=== PATIENT | female | born 1980 | race Caucasian/White ===

== ENCOUNTER 2018-07-09 16:47 | Inpatient (IN) | payer OTHER ==
[2018-07-09] MEDS ORDERED: ONDANSETRON ODT 4 MG TAB PO STA (17:37)
[2018-07-09] MEDS ORDERED: ACETAMINOPHEN TAB 500 MG TAB PO STA (17:37)
[2018-07-09] MEDS ORDERED: KETOROLAC 30 MG/ML 1 ML VIAL IVP STA (17:37)
--- NOTE | 2018-07-09 17:39 | ED ---
General Adult HPI - General Chief complaint: Fever Stated complaint: Lower L Groin Pain Time Seen by Provider: 07/09/18 17:27 Source: patient, RN notes reviewed Mode of arrival: ambulatory Limitations: no limitations - History of Present Illness Initial comments: 37-year-old female without any significant past medical history presents to the emergency department for a chief complaint of left groin pain and fever. Patient states she has that she woke up in the middle of the night and felt febrile and had left groin pain. Patient states that she did have a fever up to 101 today. Last took Tylenol about 4 hours ago. Patient unsure of how much she took but took 1 tab. Patient states she also has pain in her left groin. States it is a sharp pain. States she has had similar pain before due to a fibroid but this is much worse. Denies hematuria but does admit to heavy vaginal bleeding that has been ongoing for a few days. Patient admits to nausea, denies vomiting. Denies diarrhea, hematochezia, melena. Patient has no other complaints at this time including shortness of breath, chest pain, abdominal pain, vomiting, headache, or visual changes. - Related Data Home Medications Medication Instructions Recorded Confirmed No Known Home Medications 07/09/18 07/09/18 Allergies Allergy/AdvReac Type Severity Reaction Status Date / Time No Known Allergies Allergy Verified 07/09/18 17:55 Review of Systems ROS Statement: Those systems with pertinent positive or pertinent negative responses have been documented in the HPI. ROS Other: All systems not noted in ROS Statement are negative. Past Medical History Past Medical History: No Reported History History of Any Multi-Drug Resistant Organisms: None Reported Past Surgical History: No Surgical Hx Reported Past Psychological History: No Psychological Hx Reported Smoking Status: Never smoker Past Alcohol Use History: None Reported Past Drug Use History: None Reported General Exam Limitations: no limitations General appearance: alert, in no apparent distress Head exam: Present: atraumatic, normocephalic, normal inspection Eye exam: Present: normal appearance, PERRL, EOMI. Absent: scleral icterus, conjunctival injection, periorbital swelling ENT exam: Present: normal exam, mucous membranes moist Neck exam: Present: normal inspection, full ROM. Absent: tenderness, meningismus, lymphadenopathy Respiratory exam: Present: normal lung sounds bilaterally. Absent: respiratory distress, wheezes, rales, rhonchi, stridor Cardiovascular Exam: Present: normal rhythm, tachycardia, normal heart sounds. Absent: systolic murmur, diastolic murmur, rubs, gallop, clicks GI/Abdominal exam: Present: soft, tenderness (Tenderness in LLQ, no rebound), normal bowel sounds. Absent: distended, guarding, rebound, rigid External exam: Present: normal external exam. Absent: erythema, swelling, le sions, lacerations, ecchymosis Speculum exam: Present: vaginal bleeding (mild vaginal bleeding noted). Absent: erythema, vaginal discharge, cervical discharge, foreign body By manual exam: Present: normal by manual exam. Absent: cervical motion ten derness, adnexal tenderness (minimal L adnexal tendernsss), adnexal mass, uterine enlargement Back exam: Present: CVA tenderness (L). Absent: CVA tenderness (R) Neurological exam: Present: alert, oriented X3, CN II-XII intact Psychiatric exam: Present: normal affect, normal mood Course Vital Signs 07/09/18 07/09/18 07/09/18 16:57 18:00 20:03 Temperature 99.5 F Pulse Rate 147 H 118 H 105 H Respiratory 16 18 18 Rate Blood Pressure 123/80 137/78 123/78 O2 Sat by Pulse 100 100 100 Oximetry 07/09/18 22:04 Temperature 98.3 F Pulse Rate 81 Respiratory 18 Rate Blood Pressure 100/68 O2 Sat by Pulse 100 Oximetry - Reevaluation(s) Reevaluation #1: 07/09/18 20:20 Dr Sidhu at bedside, evaluating patient, ordering CRP EKG Findings - EKG Comments: EKG Findings:: Sinus tachycardia, ventricular rate 128,. Interval 144, QTC 298, no evidence of ST elevation or depression, Medical Decision Making - Medical Decision Making 37-year-old female without any significant past medical history presents to the ED for a chief complaint of left groin pain and fever. States that this pain is actually been going on for for quite sometime, likely since June and has been due to a fibroid. However pain worsened significantly last night and patient developed a fever. States she has had vaginal bleeding but no vaginal discharge. On exam patient has left lower quadrant suprapubic tenderness. However on pelvic there is not any significant adnexal tenderness and tenderness seems to be higher up in the abdomen. Patient does present with a low-grade fever of 99.4. Initially tachycardic with a heart rate of 147, this was normal sinus rhythm. Heart rate did gradually decrease to 105 after Toradol and Tylenol was given. CBC does show leukocytosis with a left shift of 24. CMP is unremarkable. Urine does not show any evidence of infection, there is blood noted however this is likely vaginal bleeding. Influenza negative. CT of the abdomen and pelvis was ordered with contrast that did not show any cause for left-sided pain or abdominal pain in general. The cecum was noted to be low in the pelvis. At this time ultrasound of the pelvis was ordered. Patient denies any vaginal discharge or concern physically transmitted diseases. Gonorrhea chlamydia and Trichomonas are pending. Dr. Pastrana evaluated patient, recommends adding CRP and admitting with a surgical consult. Patient will be admitted at this time. Patient is currently stable. Ultrasound does show a mass in the lower uterine segment of uncertain significance. This has increased vascularity compared to remainder of the uterus. This could be a uterine fibroid. Patient does have a history of uterine fibroid. - Lab Data Result diagrams: 07/09/18 17:50 07/09/18 17:50 Lab Results 07/09/18 07/09/18 07/09/18 Range/Units 17:45 17:45 17:45 WBC (3.8-10.6) k/uL RBC (3.80-5.40) m/uL Hgb (11.4-16.0) gm/dL Hct (34.0-46.0) % MCV (80.0-100.0) fL MCH (25.0-35.0) pg MCHC (31.0-37.0) g/dL RDW (11.5-15.5) % Plt Count (150-450) k/uL Neutrophils % % Lymphocytes % % Monocytes % % Eosinophils % % Basophils % % Neutrophils # (1.3-7.7) k/uL Lymphocytes # (1.0-4.8) k/uL Monocytes # (0-1.0) k/uL Eosinophils # (0-0.7) k/uL Basophils # (0-0.2) k/uL PT (9.0-12.0) sec INR (<1.2) APTT (22.0-30.0) sec Sodium (137-145) mmol/L Potassium (3.5-5.1) mmol/L Chloride (98-107) mmol/L Carbon Dioxide (22-30) mmol/L Anion Gap mmol/L BUN (7-17) mg/dL Creatinine (0.52-1.04) mg/dL Est GFR (CKD-EPI)AfAm (>60 ml/min/1.73 sqM) Est GFR (CKD-EPI)NonAf (>60 ml/min/1.73 sqM) Glucose (74-99) mg/dL Plasma Lactic Acid Skinny (0.7-2.0) mmol/L Calcium (8.4-10.2) mg/dL Total Bilirubin (0.2-1.3) mg/dL AST (14-36) U/L ALT (9-52) U/L Alkaline Phosphatase (38-126) U/L C-Reactive Protein (<10.0) mg/L Total Protein (6.3-8.2) g/dL Albumin (3.5-5.0) g/dL Urine Color Yellow Urine Appearance Clear (Clear) Urine pH 5.0 (5.0-8.0) Ur Specific Gentry 1.018 (1.001-1.035) Urine Protein Negative (Negative) Urine Glucose (UA) Negative (Negative) Urine Ketones Negative (Negative) Urine Blood Small H (Negative) Urine Nitrite Negative (Negative) Urine Bilirubin Negative (Negative) Urine Urobilinogen <2.0 (<2.0) mg/dL Ur Leukocyte Esterase Negative (Negative) Urine RBC 8 H (0-5) /hpf Urine WBC 1 (0-5) /hpf Urine Mucus Rare H (None) /hpf Urine HCG, Qual Not Detected (Not Detectd) Influenza Type A RNA Not Detected (Not Detectd) Influenza Type B (PCR) Not Detected (Not Detectd) Trichomonas Ag (Rapid) (Negative) 07/09/18 07/09/18 07/09/18 Range/Units 17:50 17:50 17:50 WBC 24.9 H (3.8-10.6) k/uL RBC 4.75 (3.80-5.40) m/uL Hgb 14.3 (11.4-16.0) gm/dL Hct 42.1 (34.0-46.0) % MCV 88.7 (80.0-100.0) fL MCH 30.1 (25.0-35.0) pg MCHC 33.9 (31.0-37.0) g/dL RDW 12.4 (11.5-15.5) % Plt Count 326 (150-450) k/uL Neutrophils % 90 % Lymphocytes % 5 % Monocytes % 3 % Eosinophils % 1 % Basophils % 0 % Neutrophils # 22.5 H (1.3-7.7) k/uL Lymphocytes # 1.3 (1.0-4.8) k/uL Monocytes # 0.7 (0-1.0) k/uL Eosinophils # 0.3 (0-0.7) k/uL Basophils # 0.0 (0-0.2) k/uL PT (9.0-12.0) sec INR (<1.2) APTT (22.0-30.0) sec Sodium 137 (137-145) mmol/L Potassium 4.1 (3.5-5.1) mmol/L Chloride 102 (98-107) mmol/L Carbon Dioxide 25 (22-30) mmol/L Anion Gap 10 mmol/L BUN 12 (7-17) mg/dL Creatinine 0.69 (0.52-1.04) mg/dL Est GFR (CKD-EPI)AfAm >90 (>60 ml/min/1.73 sqM) Est GFR (CKD-EPI)NonAf >90 (>60 ml/min/1.73 sqM) Glucose 108 H (74-99) mg/dL Plasma Lactic Acid Skinny 1.6 (0.7-2.0) mmol/L Calcium 9.9 (8.4-10.2) mg/dL Total Bilirubin 0.4 (0.2-1.3) mg/dL AST 21 (14-36) U/L ALT 31 (9-52) U/L Alkaline Phosphatase 78 (38-126) U/L C-Reactive Protein (<10.0) mg/L Total Protein 7.6 (6.3-8.2) g/dL Albumin 4.7 (3.5-5.0) g/dL Urine Color Urine Appearance (Clear) Urine pH (5.0-8.0) Ur Specific Gentry (1.001-1.035) Urine Protein (Negative) Urine Glucose (UA) (Negative) Urine Ketones (Negative) Urine Blood (Negative) Urine Nitrite (Negative) Urine Bilirubin (Negative) Urine Urobilinogen (<2.0) mg/dL Ur Leukocyte Esterase (Negative) Urine RBC (0-5) /hpf Urine WBC (0-5) /hpf Urine Mucus (None) /hpf Urine HCG, Qual (Not Detectd) Influenza Type A RNA (Not Detectd) Influenza Type B (PCR) (Not Detectd) Trichomonas Ag (Rapid) (Negative) 07/09/18 07/09/18 07/09/18 Range/Units 17:50 17:50 19:55 WBC (3.8-10.6) k/uL RBC (3.80-5.40) m/uL Hgb (11.4-16.0) gm/dL Hct (34.0-46.0) % MCV (80.0-100.0) fL MCH (25.0-35.0) pg MCHC (31.0-37.0) g/dL RDW (11.5-15.5) % Plt Count (150-450) k/uL Neutrophils % % Lymphocytes % % Monocytes % % Eosinophils % % Basophils % % Neutrophils # (1.3-7.7) k/uL Lymphocytes # (1.0-4.8) k/uL Monocytes # (0-1.0) k/uL Eosinophils # (0-0.7) k/uL Basophils # (0-0.2) k/uL PT 9.7 (9.0-12.0) sec INR 0.9 (<1.2) APTT 25.0 (22.0-30.0) sec Sodium (137-145) mmol/L Potassium (3.5-5.1) mmol/L Chloride (98-107) mmol/L Carbon Dioxide (22-30) mmol/L Anion Gap mmol/L BUN (7-17) mg/dL Creatinine (0.52-1.04) mg/dL Est GFR (CKD-EPI)AfAm (>60 ml/min/1.73 sqM) Est GFR (CKD-EPI)NonAf (>60 ml/min/1.73 sqM) Glucose (74-99) mg/dL Plasma Lactic Acid Skinny (0.7-2.0) mmol/L Calcium (8.4-10.2) mg/dL Total Bilirubin (0.2-1.3) mg/dL AST (14-36) U/L ALT (9-52) U/L Alkaline Phosphatase (38-126) U/L C-Reactive Protein 9.8 (<10.0) mg/L Total Protein (6.3-8.2) g/dL Albumin (3.5-5.0) g/dL Urine Color Urine Appearance (Clear) Urine pH (5.0-8.0) Ur Specific Gentry (1.001-1.035) Urine Protein (Negative) Urine Glucose (UA) (Negative) Urine Ketones (Negative) Urine Blood (Negative) Urine Nitrite (Negative) Urine Bilirubin (Negative) Urine Urobilinogen (<2.0) mg/dL Ur Leukocyte Esterase (Negative) Urine RBC (0-5) /hpf Urine WBC (0-5) /hpf Urine Mucus (None) /hpf Urine HCG, Qual (Not Detectd) Influenza Type A RNA (Not Detectd) Influenza Type B (PCR) (Not Detectd) Trichomonas Ag (Rapid) Negative (Negative) Disposition Clinical Impression: Abdominal pain, Leukocytosis, Fever Disposition: ADMITTED IP TO THIS HOSP Condition: Fair Is patient prescribed a controlled substance at d/c from ED?: No Time of Disposition: 21:12
[2018-07-09] MEDS: SODIUM CHLORIDE 0.9% 500 ML 500 ML IV SCH (17:55)
[2018-07-09 18:00] LABS: Basophils % (A) 0 %; Eosinophils # (A) 0.3 k/uL (0-0.7); Eosinophils % (A) 1 %; HCT 42.1 % (34.0-46.0); HGB 14.3 gm/dL (11.4-16.0); Lymphocytes # (A) 1.3 k/uL (1.0-4.8); Lymphocytes % (A) 5 %; MCH 30.1 pg (25.0-35.0); MCHC 33.9 g/dL (31.0-37.0); MCV 88.7 fL (80.0-100.0); Monocytes # (A) 0.7 k/uL (0-1.0); Monocytes % (A) 3 %; Neutrophils # (A) 22.5 k/uL (1.3-7.7); Neutrophils % (A) 90 %; Platelet Count 326 k/uL (150-450); RBC 4.75 m/uL (3.80-5.40); RDW 12.4 % (11.5-15.5); WBC 24.9 k/uL (3.8-10.6)
[2018-07-09 18:03] LABS: Appearance,Urine Clear (Clear); Bilirubin,Urine Negative (Negative); Blood,Urine Small (Negative); Color,Urine Yellow; Glucose,Urine (UA) Negative (Negative); Ketones,Urine Negative (Negative); Leukocyte Esterase,Urine Negative (Negative); Mucus,Urine Rare /hpf; Nitrite,Urine Negative (Negative); Protein,Urine Negative (Negative); RBC,Urine 8 /hpf (0-5); Specific Gravity,Urine 1.018 (1.001-1.035); Urobilinogen,Urine <2.0 mg/dL (<2.0); WBC,Urine 1 /hpf (0-5)
[2018-07-09 18:11] LABS: INR 0.9 (<1.2); Prothrombin Time 9.7 sec (9.0-12.0)
[2018-07-09 18:12] LABS: ALT 31 U/L (9-52); AST 21 U/L (14-36); Albumin 4.7 g/dL (3.5-5.0); Alkaline Phosphatase 78 U/L (38-126); Anion Gap 10 mmol/L; Blood Urea Nitrogen 12 mg/dL (7-17); Calcium 9.9 mg/dL (8.4-10.2); Carbon Dioxide 25 mmol/L (22-30); Chloride 102 mmol/L (98-107); Glucose 108 mg/dL (74-99); Potassium 4.1 mmol/L (3.5-5.1); Sodium 137 mmol/L (137-145); Total Bilirubin 0.4 mg/dL (0.2-1.3); Total Protein 7.6 g/dL (6.3-8.2)
[2018-07-09] MEDS ORDERED: SODIUM CHLORIDE 0.9% 1,000 ML IV STA (18:26)
--- NOTE | 2018-07-09 18:51 | CT ---
EXAMINATION TYPE: CT abdomen pelvis w con DATE OF EXAM: 07/09/2018 COMPARISON: None HISTORY: Left side pelvic pain. CT DLP: 864.4 mGycm Automated exposure control for dose reduction was used. TECHNIQUE: Helical acquisition of images was performed from the lung bases through the pelvis. CONTRAST: Performed without Oral Contrast and with IV Contrast, patient injected with 100ml mL of Isovue 300. FINDINGS: Lung bases are clear of consolidation. There is some coarsening of interstitial markings. Heart size is normal. There is no pericardial effusion. There is no pleural effusion. Liver spleen pancreas gallbladder appear normal. Bile ducts are not dilated. Stomach appears normal. There is no evidence of pancreatic mass. There is no adrenal mass. Kidneys show satisfactory contrast opacification. There is no hydronephrosi s. Ureters are not dilated. There is no retroperitoneal adenopathy. Bladder distends smoothly. There is no inguinal hernia. There is no free fluid in the pelvis. Uterus is anteverted and tilted to the l eft side. There is no mesenteric edema. There is no evidence of free air. There is no ascites. There is no sign of a bowel obstruction. The c ecum is very low in the pelvis. Appendix is not definitely seen. There is no sign of appendicitis. I see no bony destructive process. Lumbar spine is intact. Bony pelvis is intact. IMPRESSION: NEGATIVE CT SCAN OF THE ABDOMEN AND PELVIS. I DO NOT SEE A CAUSE FOR LEFT-SIDED PAIN.
[2018-07-09] MEDS ORDERED: metroNIDAZOLE-NS PMX 500 MG in SALINE 1 100ML.BAG IVPB STA (19:45)
--- NOTE | 2018-07-09 20:27 | P.GSCN ---
History of Present Illness Consult date: 07/09/18 History of present illness: Patient seen and evaluated. Pain ongoing of the right lower pelvis over 1 month, since June. She presents with fevers and WBC of 20k+. CT of the abdomen reviewed with inflammation of the terminal ileum. No free air. Agree with transvaginal ultrasound. Additional studies pending. Recommend c-reactive protein for evaluation of Crohn's that may present with similar findings. No acute surgical intervention at this time. Past Medical History Past Medical History: No Reported History History of Any Multi-Drug Resistant Organisms: None Reported Past Surgical History: No Surgical Hx Reported Past Psychological History: No Psychological Hx Reported Smoking Status: Never smoker Past Alcohol Use History: None Reported Past Drug Use History: None Reported Medications and Allergies Home Medications Medication Instructions Recorded Confirmed Type No Known Home Medications 07/09/18 07/09/18 History Allergies Allergy/AdvReac Type Severity Reaction Status Date / Time No Known Allergies Allergy Verified 07/09/18 17:55 Surgical - Exam Vital Signs Temp Pulse Resp BP Pulse Ox 99.5 F 147 H 16 123/80 100 07/09/18 16:57 07/09/18 16:57 07/09/18 16:57 07/09/18 16:57 07/09/18 16:57 Results - Labs 07/09/18 17:50 07/09/18 17:50 Abnormal Lab Results - Last 24 Hours (Table) 07/09/18 07/09/18 07/09/18 Range/Units 17:45 17:50 17:50 WBC 24.9 H (3.8-10.6) k/uL Neutrophils # 22.5 H (1.3-7.7) k/uL Glucose 108 H (74-99) mg/dL Urine Blood Small H (Negative) Urine RBC 8 H (0-5) /hpf Urine Mucus Rare H (None) /hpf Diabetes panel 07/09/18 Range/Units 17:50 Sodium 137 (137-145) mmol/L Potassium 4.1 (3.5-5.1) mmol/L Chloride 102 (98-107) mmol/L Carbon Dioxide 25 (22-30) mmol/L BUN 12 (7-17) mg/dL Creatinine 0.69 (0.52-1.04) mg/dL Glucose 108 H (74-99) mg/dL Calcium 9.9 (8.4-10.2) mg/dL AST 21 (14-36) U/L ALT 31 (9-52) U/L Alkaline Phosphatase 78 (38-126) U/L Total Protein 7.6 (6.3-8.2) g/dL Albumin 4.7 (3.5-5.0) g/dL Calcium panel 07/09/18 Range/Units 17:50 Calcium 9.9 (8.4-10.2) mg/dL Albumin 4.7 (3.5-5.0) g/dL Pituitary panel 07/09/18 Range/Units 17:50 Sodium 137 (137-145) mmol/L Potassium 4.1 (3.5-5.1) mmol/L Chloride 102 (98-107) mmol/L Carbon Dioxide 25 (22-30) mmol/L BUN 12 (7-17) mg/dL Creatinine 0.69 (0.52-1.04) mg/dL Glucose 108 H (74-99) mg/dL Calcium 9.9 (8.4-10.2) mg/dL Adrenal panel 07/09/18 Range/Units 17:50 Sodium 137 (137-145) mmol/L Potassium 4.1 (3.5-5.1) mmol/L Chloride 102 (98-107) mmol/L Carbon Dioxide 25 (22-30) mmol/L BUN 12 (7-17) mg/dL Creatinine 0.69 (0.52-1.04) mg/dL Glucose 108 H (74-99) mg/dL Calcium 9.9 (8.4-10.2) mg/dL Total Bilirubin 0.4 (0.2-1.3) mg/dL AST 21 (14-36) U/L ALT 31 (9-52) U/L Alkaline Phosphatase 78 (38-126) U/L Total Protein 7.6 (6.3-8.2) g/dL Albumin 4.7 (3.5-5.0) g/dL
[2018-07-09] MEDS ORDERED: MORPHINE SULFATE 4 MG/ML SYRINGE IVP STA (20:57)
[2018-07-09] MEDS ORDERED: MORPHINE SULFATE 4 MG/ML SYRINGE IV PRN (21:08)
[2018-07-09] MEDS ORDERED: NALOXONE 0.4 MG/ML 1 ML VIAL IV PRN (21:08)
[2018-07-09] MEDS ORDERED: ONDANSETRON 4 MG/2 ML VIAL IVP PRN (21:08)
--- NOTE | 2018-07-09 21:46 | US ---
EXAMINATION TYPE: US transvaginal DATE OF EXAM: 07/09/2018 COMPARISON: NONE CLINICAL HISTORY: Pain, fever. Pain TECHNIQUE: Transvaginal (TV Date of LMP: 07/08/2018 EXAM MEASUREMENTS: Uterus: 7.6 x 3.5 x 4.5 cm Endometrial Stripe: 0.8 cm Right Ovary: 2.4 x 2.0 x 2.0 cm Left Ovary: 2.8 x 1.9 x 2.1 cm 1. Uterus: Anteverted 2. Endometrium: wnl 3. Right Ovary: wnl 4. Left Ovary: wnl Spectral, color and waveform doppler imaging shows good arterial and venous flow within the ovaries ; there is no evidence for ovarian torsion. 5. Bilateral Adnexa: wnl 6. Posterior cul-de-sac: wnl Hypoechoic area in EMA with color flow seen measuring 2.6 x 2.4 x 2.6cm. IMPRESSION: There is mass in the lower uterine segment of uncertain significance. This has increased vascularity compared to the remainder of the uterus. This could be uterine fibroid. No adnexal mass. Normal endometrium.
[2018-07-09] MEDS: SODIUM CHLORIDE 0.9% 1,000 ML IV SCH (22:09)
[2018-07-09 22:34] VITALS: BMI 27.3
[2018-07-10] MEDS: SODIUM CHLORIDE 0.9% 1,000 ML IV SCH ×3 (06:17→21:19)
[2018-07-10] MEDS: ACETAMINOPHEN TAB 325 MG TAB PO PRN ×2 (10:09→23:42)
[2018-07-10] MEDS ORDERED: KETOROLAC 30 MG/ML 1 ML VIAL IVP PRN (10:34)
--- NOTE | 2018-07-10 11:40 | P.HPIM ---
History of Present Illness Patient is a pleasant 37-year-old female came in with compensative from suprapubic pain and severe 8-9/10 sharp in nature nonradiating patient was also complaining of menorrhagia denied any metrorrhagia. Patient had diarrhea nausea vomiting. Patient denied dysuria. Urine UA essentially within normal murmurs there is no evidence of pneumonia patient does have leukocytosis with a white blood cell count going up to 20,000 no objective fevers but patient had some subjective chills at home. Patient had a CAT scan of the abdomen which did show some inflammation of the terminal ileum has Gen. surgery because of which C- reactive protein is being obtained. Ultrasound that did show a vascular lesion in the uterus possibility of her fibroid because of which are consulting every morning services. Which may be contributing to her pain. Patient's pain radiated to the left flank area Review of Systems REVIEW OF SYSTEMS: CONSTITUTIONAL: No fever, no malaise, no fatigue. HEENT: No recent visual problems or hearing problems. Denied any sore throat. CARDIOVASCULAR: No chest pain, orthopnea, PND, no palpitations, no syncope. PULMONARY: No shortness of breath, no cough, no hemoptysis. GASTROINTESTINAL: No diarrhea, no nausea, no vomiting. NEUROLOGICAL: No headaches, no weakness, no numbness. HEMATOLOGICAL: Denies any bleeding or petechiae. GENITOURINARY: As mentioned in HPI MUSCULOSKELETAL/RHEUMATOLOGICAL: Denies any joint pain, swelling, or any muscle pain. ENDOCRINE: Denies any polyuria or polydipsia. The rest of the 14-point review of systems is negative. Past Medical History Past Medical History: No Reported History History of Any Multi-Drug Resistant Organisms: None Reported Past Surgical History: No Surgical Hx Reported Past Psychological History: No Psychological Hx Reported Smoking Status: Never smoker Past Alcohol Use History: None Reported Past Drug Use History: None Reported Medications and Allergies Home Medications Medication Instructions Recorded Confirmed Type No Known Home Medications 07/09/18 07/09/18 History Allergies Allergy/AdvReac Type Severity Reaction Status Date / Time No Known Allergies Allergy Verified 07/09/18 17:55 Physical Exam Vitals: Vital Signs Temp Pulse Pulse Resp BP BP Pulse Ox 07/10/18 07:05 98.5 F 72 15 98/59 98 07/10/18 02:56 74 95/60 07/10/18 02:10 84/60 07/10/18 01:33 98.0 F 64 16 83/53 97 07/09/18 22:50 98.3 F 79 17 96/64 96 07/09/18 22:04 98.3 F 81 18 100/68 100 07/09/18 20:03 105 H 18 123/78 100 07/09/18 18:00 118 H 18 137/78 100 07/09/18 16:57 99.5 F 147 H 16 123/80 100 Intake and Output 07/09/18 07/10/18 07/10/18 22:59 06:59 14:59 Intake Total 960 Balance 960 Intake: Intake, IV Titration 960 Amount Sodium Chloride 0.9% 1, 960 000 ml @ 120 mls/hr IV . Q8H20M [facility] Rx#:[id number] Other: Voiding Method Toilet Weight 83.915 kg PHYSICAL EXAMINATION: GENERAL: The patient is alert and oriented x3, not in any acute distress. Well developed, well nourished. HEENT: Pupils are round and equally reacting to light. EOMI. No scleral icterus. No conjunctival pallor. Normocephalic, atraumatic. No pharyngeal erythema. No thyromegaly. CARDIOVASCULAR: S1 and S2 present. No murmurs, rubs, or gallops. PULMONARY: Chest is clear to auscultation, no wheezing or crackles. ABDOMEN: Soft, mild to moderate suprapubic tenderness, nondistended, normoactive bowel sounds. No palpable organomegaly. MUSCULOSKELETAL: No joint swelling or deformity. EXTREMITIES: No cyanosis, clubbing, or pedal edema. NEUROLOGICAL: Gross neurological examination did not reveal any focal deficits. SKIN: No rashes. Results CBC & Chem 7: 07/09/18 17:50 07/09/18 17:50 Labs: Abnormal Lab Results - Last 24 Hours (Table) 07/09/18 07/09/18 07/09/18 Range/Units 17:45 17:50 17:50 WBC 24.9 H (3.8-10.6) k/uL Neutrophils # 22.5 H (1.3-7.7) k/uL Glucose 108 H (74-99) mg/dL Urine Blood Small H (Negative) Urine RBC 8 H (0-5) /hpf Urine Mucus Rare H (None) /hpf Microbiology - Last 24 Hours (Table) 07/09/18 17:45 Urine Culture - Preliminary Urine,Clean Catch Thrombosis Risk Factor Assmnt - Choose All That Apply Each Factor Represents 1 point: Obesity (BMI >25) Thrombosis Risk Factor Assessment Total Risk Factor Score: 1 Thrombosis Risk Factor Assessment Level: Low Risk Assessment and Plan Plan: -Abdominal pain: Can be related to her uterine fibroid, UA and services was consulted patient does have menorrhagia which can happen with submucosal fibroid. We'll use nonsteroidal Antivert history for pain rather than morphine. -Leukocytosis there is no evidence of infection at this time we'll obtain a pro- calcitonin level probably reactive and repeat compresses metabolic profile tomorrow. -Rule out Crohn's because of some possible inflammation of the terminal ileum, obtaining C-reactive protein -DVT prophylaxis: Early ambulation
--- NOTE | 2018-07-10 12:04 | P.PN ---
Subjective Progress Note Date: 07/10/18 CHIEF COMPLAINT: Pelvic pain HISTORY OF PRESENT ILLNESS: Patient seen and examined the bedside. Patient continues to complain of pelvic pain but states it is a litter better than yesterday. She reports she has had this pelvic pain since June. Her PCP recommended she see an OBGYN. She reports she had an appointment for evaluation with an OB at the end of July. Denies nausea or vomiting. CRP within normal limits. No repeat lab work obtained this morning. Transvaginal ultrasound completed yesterday reveals mass in the lower uterine segment of uncertain significance with increased vascularity compared to remainder of uterus. Possible uterine fibroid. PHYSICAL EXAM: VITAL SIGNS: Reviewed. GENERAL: Well-developed in no acute distress. HEENT: No sclera icterus. Extraocular movements grossly intact. Moist buccal mucosa. Head is atraumatic, normocephalic. ABDOMEN: Soft. Nondistended. Suprapubic tenderess. NEUROLOGIC: Alert and oriented. Cranial nerves II through XII grossly intact. ASSESSMENT: 1. Pelvic pain x 1 month 2. Uterine mass, possible fibroid PLAN: NPO except for meds, ice chips, water Recommend OBGYN consult Nurse practitioner note has been reviewed by physician. Signing provider agrees with the documented findings, assessment, and plan of care. Objective - Vital Signs Vital signs: Vital Signs Temp 98.5 F 07/10/18 07:05 Pulse 72 07/10/18 07:05 Resp 15 07/10/18 07:05 BP 98/59 07/10/18 07:05 Pulse Ox 98 07/10/18 07:05 Intake & Output 07/09/18 07/10/18 07/10/18 18:59 06:59 18:59 Intake Total 960 Balance 960 Weight 83.915 kg Intake: Intake, IV Titration 960 Amount Sodium Chloride 0.9% 1, 960 000 ml @ 120 mls/hr IV . Q8H20M [facility] Rx#:[id number] Other: Voiding Method Toilet - Labs CBC & Chem 7: 07/09/18 17:50 07/09/18 17:50 Labs: Abnormal Lab Results - Last 24 Hours (Table) 07/09/18 07/09/18 07/09/18 Range/Units 17:45 17:50 17:50 WBC 24.9 H (3.8-10.6) k/uL Neutrophils # 22.5 H (1.3-7.7) k/uL Glucose 108 H (74-99) mg/dL Urine Blood Small H (Negative) Urine RBC 8 H (0-5) /hpf Urine Mucus Rare H (None) /hpf Microbiology - Last 24 Hours (Table) 07/09/18 17:45 Urine Culture - Preliminary Urine,Clean Catch Assessment and Plan (1) Pelvic pain Current Visit: Yes Status: Acute Code(s): R10.2 - PELVIC AND PERINEAL PAIN SNOMED Code(s): 87322677 (2) Uterine mass Current Visit: Yes Status: Acute Code(s): N85.9 - NONINFLAMMATORY DISORDER OF UTERUS, UNSPECIFIED SNOMED Code(s): 525314776143502 (3) Abdominal pain Current Visit: Yes Status: Acute Code(s): R10.9 - UNSPECIFIED ABDOMINAL PAIN SNOMED Code(s): 78412077 (4) Leukocytosis Current Visit: Yes Status: Acute Code(s): D72.829 - ELEVATED WHITE BLOOD CELL COUNT, UNSPECIFIED SNOMED Code(s): 945857612
[2018-07-10] MEDS: KETOROLAC 30 MG/ML 1 ML VIAL IVP PRN ×2 (12:07→20:40)
[2018-07-10 16:32] LABS: Basophils # (A) 0.1 k/uL (0-0.2); Basophils % (A) 0 %; Eosinophils # (A) 0.1 k/uL (0-0.7); Eosinophils % (A) 1 %; HCT 37.3 % (34.0-46.0); HGB 12.2 gm/dL (11.4-16.0); Lymphocytes # (A) 2.7 k/uL (1.0-4.8); Lymphocytes % (A) 18 %; MCH 29.6 pg (25.0-35.0); MCHC 32.8 g/dL (31.0-37.0); MCV 90.3 fL (80.0-100.0); Mean Platelet Volume 7.6; Monocytes # (A) 0.6 k/uL (0-1.0); Monocytes % (A) 4 %; Neutrophils % (A) 75 %; Platelet Count 247 k/uL (150-450); RBC 4.13 m/uL (3.80-5.40); WBC 14.6 k/uL (3.8-10.6)
--- NOTE | 2018-07-10 19:39 | P.PN ---
Progress Note - Text Progress Note Date: 07/10/18 Patient reevaluated this evening from this morning. She states the pain has not improved of the pelvis of moderate dull cramping. Studies consistent with questionable lesion in the pelvis. She reports pending to see a security strategist as outpatient. With computed tomography scan and transvaginal ultrasound demonstrating lesion within the pelvis, gynecological consultation is pending. Her symptoms has been present over 3+ weeks, we'll await gynecological recommendations. No acute surgical intervention at this time. All questions addressed and answered to the patient with her mother at bedside.
--- NOTE | 2018-07-10 20:07 | P.OBCN ---
History of Present Illness Consult date: 07/10/18 Reason for consult: pelvic pain Chief complaint: Pelvic/abdominal pain and fever History of present illness: This patient is a 37-year-old 0 para 0 femalewho presented to the emergency department yesterday with complaints of left groin pain and a fever at home. Patient states that she has had this similar abdominal pain for the last month or 2 and was seen by her primary care physician who ordered a pelvic u ltrasound. Pelvic ultrasound apparently at that time showed a uterine fibroid, small. Patient subsequently presented here with worsening pain and a fever at home was found to have an elevated white count to 24 and a low-grade temperature of 99 5. Patient's gynecologic history is such that she denies being in a relationship however she was sexually active approximately 3 weeks ago. She does not use anything for contraception. She has never had a . Patient denies a vaginal discharge. She is having regular menstrual cycles her last 2 been slightly heavy. She is currently on her menstrual cycle. Past medical history is unremarkable. Evaluation thus far shows a CAT scan which is normal and a pelvic cyst ultrasound which is normal with the exception of a incidental 2.6 cm fibroid. White blood cell count is now 14.6 and she is been afebrile. Patient did receive 2 antibiotics in the emergency department but has not been on any other antibiotics at this time. Patient is in the process of seeing a tin tie machine operator automatic as an outpatient at a different facility. Review of Systems Constitutional: Reports as per HPI Past Medical History Past Medical History: No Reported History History of Any Multi-Drug Resistant Organisms: None Reported Past Surgical History: No Surgical Hx Reported Past Psychological History: No Psychological Hx Reported Smoking Status: Never smoker Past Alcohol Use History: None Reported Past Drug Use History: None Reported Medications and Allergies Home Medications Medication Instructions Recorded Confirmed Type No Known Home Medications 07/09/18 07/09/18 History Allergies Allergy/AdvReac Type Severity Reaction Status Date / Time No Known Allergies Allergy Verified 07/09/18 17:55 Exam Vital Signs Temp Pulse Pulse Resp BP BP Pulse Ox 07/10/18 15:00 98.2 F 71 16 98/62 98 07/10/18 07:05 98.5 F 72 15 98/59 98 07/10/18 02:56 74 95/60 07/10/18 02:10 84/60 07/10/18 01:33 98.0 F 64 16 83/53 97 07/09/18 22:50 98.3 F 79 17 96/64 96 07/09/18 22:04 98.3 F 81 18 100/68 100 07/09/18 20:03 105 H 18 123/78 100 Intake and Output 07/10/18 07/10/18 07/10/18 06:59 14:59 22:59 Intake Total 960 840 Balance 960 840 Intake: Intake, IV Titration 960 840 Amount Sodium Chloride 0.9% 1, 960 840 000 ml @ 120 mls/hr IV . Q8H20M [facility] Rx#:[id number] Other: Voiding Method Toilet # Voids 2 - OBG Physical Exam Abdomen: Patient has some mild lower abdomen tenderness there is no rebound, or guarding. Abdomen: bowel sounds normal, no diffuse tenderness, no bruit present, no guarding noted, no hepatomegaly, no splenomegaly, no mass Results Result Diagrams: 07/10/18 15:59 07/09/18 17:50 Abnormal Lab Results - Last 24 Hours (Table) 07/10/18 07/10/18 Range/Units 12:03 15:59 WBC 14.6 H (3.8-10.6) k/uL Neutrophils # 11.0 H (1.3-7.7) k/uL Procalcitonin 0.22 H (0.02-0.09) ng/mL Microbiology - Last 24 Hours (Table) 07/09/18 17:45 Urine Culture - Preliminary Urine,Clean Catch Assessment and Plan Assessment: This patient is a 37-year-old 0 para 0 female with a 2 month history of lower abdominal and pelvic pain, mostly we recently worsening and with a fever and initial leukocytosis. Her leukocytosis appears to be resolving and she has been afebrile. Typically this does not fit the picture of a pelvic inflammatory disease or other pelvic infection. Her fibroid is very small and for the most part an incidental finding; certainly not the source of her pain or any infection. There is no evidence of any acute gynecologic processes and she does not fit the criteria for pelvic inflammatory disease. My recommendation was to be to continue to observe and do serial CBCs. If she did develop a fever or if her white blood cell count went back up consider putting her back on a ntibiotics. She may follow up with the tin tie machine operator automatic she plans to see as an outpatient. I did have a long discussion with her about fibroids and their natural history. Thank you very much for this consultation. (1) Pelvic pain Current Visit: Yes Status: Acute Code(s): R10.2 - PELVIC AND PERINEAL PAIN SNOMED Code(s): 66232230 (2) Uterine fibroid Current Visit: Yes Status: Acute Code(s): D25.9 - LEIOMYOMA OF UTERUS, UNSPECIFIED SNOMED Code(s): 65984021
[2018-07-11] MEDS: SODIUM CHLORIDE 0.9% 1,000 ML IV SCH ×3 (07:52→22:32)
[2018-07-11] MEDS: KETOROLAC 30 MG/ML 1 ML VIAL IVP PRN ×2 (07:52→19:27)
[2018-07-11 09:15] LABS: HCT 39.5 % (34.0-46.0); HGB 12.8 gm/dL (11.4-16.0); MCH 29.5 pg (25.0-35.0); MCHC 32.5 g/dL (31.0-37.0); MCV 90.6 fL (80.0-100.0); Mean Platelet Volume 7.4; Platelet Count 278 k/uL (150-450); RBC 4.36 m/uL (3.80-5.40); RDW 12.4 % (11.5-15.5); WBC 11.4 k/uL (3.8-10.6)
[2018-07-11 09:40] LABS: Anion Gap 10 mmol/L; Blood Urea Nitrogen 11 mg/dL (7-17); Calcium 8.8 mg/dL (8.4-10.2); Carbon Dioxide 23 mmol/L (22-30); Chloride 108 mmol/L (98-107); Glucose 58 mg/dL (74-99); Potassium 4.2 mmol/L (3.5-5.1); Sodium 141 mmol/L (137-145)
--- NOTE | 2018-07-11 11:32 | P.PN ---
Subjective 37-year-old admitted with the pelvic pain and suprapubic pain to surgery and PICKER MACHINE OPERATOR evaluated the patient and the TRIBUNAL MEMBER doesn't believe fibroid is committed to the pain. I had the discussion today with the general surgery the recommending IV antibiotics and possibility of appendicitis cannot be completely ruled out because of which patient will probably go for x-ray laparotomy tomorrow morning. Her white blood cell count has come down to 11,000. Constitutional: Denied any fatigue denied any fever. Cardio vascular: denied any chest pain, palpitations Gastrointestinal still has significant amount of pain without any improvement Pulmonary: Denied any shortness of breath cough Neurologic denied any new focal deficits All inpatient medications were reviewed and appropriate changes in these medications as dictated in the interval history and assessment and plan. Objective - Vital Signs Vital signs: Vital Signs Temp 98.3 F 07/11/18 07:00 Pulse 80 07/11/18 07:00 Resp 16 07/11/18 07:00 BP 104/69 07/11/18 07:00 Pulse Ox 98 07/11/18 07:00 Intake & Output 07/10/18 07/11/18 07/11/18 18:59 06:59 18:59 Intake Total 840 960 Balance 840 960 Intake: Intake, IV Titration 840 960 Amount Sodium Chloride 0.9% 1, 840 960 000 ml @ 120 mls/hr IV . Q8H20M [facility] Rx#:[id number] Other: Voiding Method Toilet Toilet # Voids 2 2 - Exam PHYSICAL EXAMINATION: GENERAL: The patient is alert and oriented x3, not in any acute distress. Well developed, well nourished. HEENT: Pupils are round and equally reacting to light. EOMI. No scleral icterus. No conjunctival pallor. Normocephalic, atraumatic. No pharyngeal erythema. No thyromegaly. CARDIOVASCULAR: S1 and S2 present. No murmurs, rubs, or gallops. PULMONARY: Chest is clear to auscultation, no wheezing or crackles. ABDOMEN: Soft, mild to moderate suprapubic tenderness, nondistended, normoactive bowel sounds. No palpable organomegaly. MUSCULOSKELETAL: No joint swelling or deformity. EXTREMITIES: No cyanosis, clubbing, or pedal edema. NEUROLOGICAL: Gross neurological examination did not reveal any focal deficits. SKIN: No rashes. - Labs CBC & Chem 7: 07/11/18 07:46 07/11/18 07:46 Labs: Abnormal Lab Results - Last 24 Hours (Table) 07/10/18 07/10/18 07/11/18 Range/Units 12:03 15:59 07:46 WBC 14.6 H 11.4 H (3.8-10.6) k/uL Neutrophils # 11.0 H (1.3-7.7) k/uL Chloride (98-107) mmol/L Glucose (74-99) mg/dL Procalcitonin 0.22 H (0.02-0.09) ng/mL 07/11/18 Range/Units 07:46 WBC (3.8-10.6) k/uL Neutrophils # (1.3-7.7) k/uL Chloride 108 H (98-107) mmol/L Glucose 58 L (74-99) mg/dL Procalcitonin (0.02-0.09) ng/mL Microbiology - Last 24 Hours (Table) 07/09/18 19:55 Blood Culture - Preliminary Blood No Growth after 24 hours 07/09/18 17:45 Urine Culture - Final Urine,Clean Catch Assessment and Plan Plan: -Abdominal pain: Etiology is not clear as mentioned above appendicitis cannot be completely ruled out because of which I'll started on antibiotics but would cell count is coming down and the patient the will undergo expiratory laparotomy tomorrow morning -Leukocytosis there is no evidence of infection at this time we'll obtain a pro- calcitonin level bit elevated as mentioned above appendicitis cannot be completely ruled out -Rule out Crohn's because of some possible inflammation of the terminal ileum, CRP levels are within normal limits -DVT prophylaxis: Early ambulation
--- NOTE | 2018-07-11 11:58 | P.PN ---
Subjective Progress Note Date: 07/11/18 CHIEF COMPLAINT: Abdominal pain with leukocytosis HISTORY OF PRESENT ILLNESS: The patient is a 37-year-old female who presented to the emergency room with sepsis, white count over 24,000 including or pelvic/right lower quadrant abdominal pain. Multiple diagnostic studies including pelvic ultrasound and CT scans were obtained. Patient still reports that pain is persistent. She had been seen by the paving foreman where gynecological workup has been dismissed. Her white blood cell count is still elevated. She has poor appetite. ROS: No reports of nausea and vomiting. No bowel movements. No fevers or chills. No new chest pain. No productive sputum PHYSICAL EXAM: VITAL SIGNS: Reviewed CONSTITUTIONAL: Well developed and in no acute distress. EYES: Conjuctivae without sclera icterus. Extraocular movements grossly intact. HEAD, EARS, NOSE, THROAT: Moist buccal mucosa. Head is atraumatic, normocephalic. Hears conversational speech. No nasal drainage. NECK: Supple. No thyroidomegaly. RESPIRATORY: Non-labored respirations and equal bilateral excursions. CARDIOVASCULAR: Palpable 2+ radial pulses. Regular rate. Regular rhythm. ABDOMEN: Tender above the pubis. No gross peritonitis MUSCULOSKELETAL: No gross deformity of the lower extremities noted. No clubbing. No cyanosis. SKIN: Good skin turgor. Well perfused. NEUROLOGIC: Cranial nerves I through XII grossly intact. No focal or lateralizing signs. PSYCH: Appropriate affect. Alert and oriented to person, place and time. CLINCAL LABS: White blood cell count initially 24,000 down to 11,000 ASSESSMENT: 1. Abdominal pain with leukocytosis PLAN: 1. I had spoken to her prior about possible diagnostic laparoscopy pending her clinical course and especially after evaluation by the paving foreman. 2. As her symptoms are still persistent, I spoke personally with the hospitalist who also agrees with proceeding with diagnostic laparoscopy possible appendectomy. 3. DVT prophylaxis 4. Will Board for case per request of admitting provider Objective - Vital Signs Vital signs: Vital Signs Temp 98.3 F 07/11/18 07:00 Pulse 80 07/11/18 07:00 Resp 16 07/11/18 07:00 BP 104/69 07/11/18 07:00 Pulse Ox 98 07/11/18 07:00 Intake & Output 05/09/19 05/10/19 05/10/19 18:59 06:59 18:59 Intake Total 840 960 Balance 840 960 Intake: Intake, IV Titration 840 960 Amount Sodium Chloride 0.9% 1, 840 960 000 ml @ 120 mls/hr IV . Q8H20M [facility] Rx#:[id number] Other: Voiding Method Toilet Toilet # Voids 2 2 - Labs CBC & Chem 7: 07/11/18 07:46 07/11/18 07:46 Labs: Abnormal Lab Results - Last 24 Hours (Table) 07/10/18 07/10/18 07/11/18 Range/Units 12:03 15:59 07:46 WBC 14.6 H 11.4 H (3.8-10.6) k/uL Neutrophils # 11.0 H (1.3-7.7) k/uL Chloride (98-107) mmol/L Glucose (74-99) mg/dL Procalcitonin 0.22 H (0.02-0.09) ng/mL 07/11/18 Range/Units 07:46 WBC (3.8-10.6) k/uL Neutrophils # (1.3-7.7) k/uL Chloride 108 H (98-107) mmol/L Glucose 58 L (74-99) mg/dL Procalcitonin (0.02-0.09) ng/mL Microbiology - Last 24 Hours (Table) 07/09/18 19:55 Blood Culture - Preliminary Blood No Growth after 24 hours 07/09/18 17:45 Urine Culture - Final Urine,Clean Catch
[2018-07-11] MEDS ORDERED: SCOPOLAMINE 1.5MG/72HR PATCH TRANSDERM ONE (13:27)
[2018-07-11] MEDS ORDERED: DEXAMETHASONE SOD PHOSPHATE 10 MG/ML 1 ML VIAL IV ONE (13:27)
[2018-07-11] MEDS ORDERED: ONDANSETRON 4 MG/2 ML VIAL IVP ONE (13:27)
[2018-07-11] MEDS ORDERED: HYDROmorphone 0.5 MG/0.5 ML SYRINGE IVP PRN (13:28)
[2018-07-11] MEDS ORDERED: METOCLOPRAMIDE 5 MG/ML 2 ML VIAL IVP PRN (13:28)
[2018-07-11] MEDS ORDERED: LACTATED RINGERS 1,000 ML IV SCH (13:30)
[2018-07-11] MEDS ORDERED: IV FLUID CONTINUATION 800 ML IV ONE (13:30)
[2018-07-11] MEDS ORDERED: HEPARIN SODIUM,PORCINE 5,000 UNIT/ML 1 ML VIAL SQ ONE (13:41)
[2018-07-11] MEDS ORDERED: LIDOCAINE 1% INJ 10MG/ML (20 ML MDV) ONE (14:05)
[2018-07-11] MEDS ORDERED: PROPOFOL 10 MG/ML 20 ML VIAL IV ONE (14:05)
[2018-07-11] MEDS ORDERED: KETOROLAC 30 MG/ML 1 ML VIAL ONE (14:05)
[2018-07-11] MEDS ORDERED: ROCURONIUM BROMIDE 10 MG/ML 10 ML VIAL IV ONE (14:05)
[2018-07-11] MEDS ORDERED: fentaNYL (PF) 50 MCG/ML 2 ML AMP ONE (14:05)
[2018-07-11] MEDS ORDERED: GLYCOPYRROLATE 0.2 MG/ML 2 ML VIAL ONE (14:05)
[2018-07-11] MEDS ORDERED: MIDAZOLAM 2 MG/2 ML VIAL ONE (14:05)
[2018-07-11] MEDS ORDERED: NEOSTIGMINE 1 MG/ML 10 ML VIAL ONE (14:05)
[2018-07-11] MEDS ORDERED: ceFAZolin 1,000 MG VIAL ONE (14:05)
[2018-07-11] MEDS ORDERED: SODIUM CHLORIDE 0.9% 100 ML with ceFAZolin 2 GM IV ONE ×2 (14:15)
[2018-07-11 14:24] LABS: N. gonorrhoeae,PCR Negative (Neg,Equiv); Neisseria Source Vagina
[2018-07-11 14:33] LABS: C. trachomatis,PCR Negative (Neg,Equiv); Chlamydia trachomatis Source Vagina
[2018-07-11] MEDS ORDERED: BUPIVACAINE-EPI 0.5%-1:200,000 10 ML VIAL SQ ONE (14:33)
[2018-07-11] MEDS ORDERED: LACTATED RINGERS 1,000 ML IV ONE (15:26)
--- NOTE | 2018-07-11 16:15 | P.OP ---
Date of Procedure: 07/11/18 Description of Procedure: Preoperative Diagnosis: 1. Leukocytosis 2. Right lower quadrant pain 3. Left lower quadrant pain 4. Peritonitis 5. Hypotension 6. Sepsis Postoperative Diagnosis: 1. Leukocytosis 2. Right lower quadrant pain 3. Left lower quadrant pain 4. Peritonitis 5. Hypotension 6. Sepsism 7. Endometriosis of the cul-de-sac 8. Uterine fibroid intra-uterine 9. Ovarian cysts, bilatreal Procedure(s) Performed: 1. Robotic-assisted daVinci Xi laparoscopic appendectomy 2. Evacuation of hemoperitoneum 3. Ablation of endometrial deposits pelvis, cul-de-sac Anesthesia: GONZALOA, local Surgeon: Lupe Sidhu Estimated Blood Loss (ml): 5 Pathology: none sent Condition: stable Disposition: floor Operative Findings: 1. Moderate hemoperitoneum over 250 mL evacuated from pelvis and cul-de-sac 2. Terminal ileum unremarkable 3. Cecum unremarkable 4. No bilateral inguinal hernias 5. Two endometrial deposits along cul-de-sac ablated 6. Physiologic bilateral ovarian cysts less than 8 mm 7. Likely source of hemoperitoneum from endometriosis INDICATIONS: The patient is a 37-year-old female who presents with bilateral lower abdominal pain initial right greater than left, leukocytosis, and hypotension. Despite additional studies and IV antibiotics, her abdominal pain was not improving. Benefits and risks, including infection, open surgery, and possibility for additional surgery was discussed at length. Informed consent was obtained. All questions of the patient and family were answered. DESCRIPTION: The patient was transferred to the operating room and placed in supine position. The patient had previously voided. The abdomen was then prepped and draped in standard sterile fashion as Ioban was placed along the abdomen to minimize any contamination of skin floor. After a timeout protocol was performed, attention was then brought to the left upper quadrant whereby a 0 degree 5 mm laparoscopic trocar entry was performed. The abdominal cavity was entered and insufflated to 15 mmHg pressure, which was tolerated well. Diagnostic laparoscopy demonstrated no injury to bowel, viscera or mesentery. Next a robotic 12-mm trocar was placed along the left lower quadrant, 15-cm lateral to the midline. A 8 mm port was placed along the right upper quadrant and another 8-mm port along the epigastrium. Ports were placed 10 cm apart from each other including 15-20 cm away from the target anatomy of the right pelvis. The patient was then placed in Trendelenburg position, at least 10 down and right side up at least 6. The robotic da Shelley XI system was primed and docked from the left side of the patient. Using atraumatic graspers and vessel sealer, the robotic system was docked and primed as described. Instruments were interchanged by the water quality assistant including graspers, robotic stapler and vessel sealer. Next, attention was brought to identify the cecum. A systematic view within the abdominal cavity was started with the small bowel which was unremarkable. The base of the cecum was unremarkable. The appendix was found deep into the pelvis with highly redundant sigmoid colon and cecum. No inguinal hernias were identified. Blood was found in the pelvis including th cul-de-sac. Suction international affairs vice president was used to evacuate the blood. Endometrial deposits were found in the cul-de-sac and ablated with vessel sealer. Additionally, fallopian tube was unremarkable with small physiologic cysts less than 8mm on both ovaries. The uterus was bulbous without exophytic mass along the serosa consistent with history of intra-uterine fibroid. The body to tip of the appendix was without dilation. No perforation was identified. A 45 mm white robotic staple loads were fired along the base of the appendix. The staple line was hemostatic. Hemostasis was checked prior to undocking the robot. The robot was undocked. I re-scrubbed into the case. The specimen was removed from the abdominal cavity with an Endo Catch bag through the 12 mm trocar at the left lower quadrant. All instruments and pneumoperitoneum were evacuated from the abdominal cavity. Local anesthetic was infiltrated to all wounds for postop analgesia. All incisions were also cleansed with diluted hydrogen peroxide. Exofin glue was applied to the rest of the skin incisions. The patient had tolerated the procedure well. The patient was extubated successfully. Postoperatively, her bilateral lower abdominal pain right greater than left had resolved.
[2018-07-11] MEDS: AMPICILLIN-SULBACTAM 3 GM in SODIUM CHLORIDE 0.9% 100 ML IVPB SCH ×2 (17:58→19:26)
--- NOTE | 2018-07-11 18:20 | P.PN ---
Progress Note - Text Progress Note Date: 07/11/18 Surgically she is doing well. Pelvic and abdominal pain completely resolved. Mother at bedside. She now has an appetite. Patient is clear for discharge from a surgical standpoint when medically stable. Discharge instructions reviewed with follow-up as outpatient in 2 weeks.
[2018-07-12] MEDS: AMPICILLIN-SULBACTAM 3 GM in SODIUM CHLORIDE 0.9% 100 ML IVPB SCH ×3 (00:38→12:37)
[2018-07-12 08:13] LABS: Anion Gap 11 mmol/L; Blood Urea Nitrogen 10 mg/dL (7-17); Calcium 9.1 mg/dL (8.4-10.2); Carbon Dioxide 19 mmol/L (22-30); Chloride 110 mmol/L (98-107); Glucose 79 mg/dL (74-99); Potassium 4.6 mmol/L (3.5-5.1); Sodium 140 mmol/L (137-145)
[2018-07-12] MEDS: SODIUM CHLORIDE 0.9% 1,000 ML IV SCH (09:20)
[2018-07-12 12:16] VITALS: BP 117/75; PULSE 69; RESP 18; TEMP 98.2
[2018-07-12] MEDS: KETOROLAC 30 MG/ML 1 ML VIAL IVP PRN (12:17)
--- NOTE | 2018-07-12 16:07 | P.DS ---
Providers Date of admission: 07/11/18 13:57 Attending physician: Marcel Leon Consults: 07/09/18 21:08 Consult Physician Stat Consulting Provider: Lupe Sidhu Consult Reason/Comments: abdominal pain, fever, leukocytosis Do you want consulting provider notified?: Already Contacted 07/10/18 14:20 Consult Physician Routine Consulting Provider: Gerber Urias Consult Reason/Comments: Pelvis pain with leukocytosis Do you want consulting provider notified?: Yes Primary care physician: Elle Priest Hospital Course: 37-year-old admitted with the pelvic pain and suprapubic pain to surgery and SURGICAL PROCESSOR evaluated the patient and the SQUILGEER doesn't believe fibroid is committed to the pain. I had the discussion today with the general surgery the recommending IV antibiotics and possibility of appendicitis cannot be completely ruled out because of which patient will probably go for x-ray laparotomy tomorrow morning. Her white blood cell count has come down to 11,000. 07/12/2018 Patient underwent x-ray laparotomy found to have hemoperitoneum and endometriosis of cul-de-sac. I'll discharge her in 3 days of antibiotics consider the severe leukocytosis at admission. Patient was asked to follow up with the SQUILGEER and general surgery as an outpatient. Patient pain resolved completely after evacuation of blood from pelvis. PHYSICAL EXAMINATION: GENERAL: The patient is alert and oriented x3, not in any acute distress. Well developed, well nourished. HEENT: Pupils are round and equally reacting to light. EOMI. No scleral icterus. No conjunctival pallor. Normocephalic, atraumatic. No pharyngeal erythema. No thyromegaly. CARDIOVASCULAR: S1 and S2 present. No murmurs, rubs, or gallops. PULMONARY: Chest is clear to auscultation, no wheezing or crackles. ABDOMEN: Soft, mild to moderate suprapubic tenderness, nondistended, normoactive bowel sounds. No palpable organomegaly. MUSCULOSKELETAL: No joint swelling or deformity. EXTREMITIES: No cyanosis, clubbing, or pedal edema. NEUROLOGICAL: Gross neurological examination did not reveal any focal deficits. SKIN: No rashes. Assessment and Plan Plan: -Abdominal pain: Secondary to hemoperitoneum, endometriosis of cul-de-sac. -Leukocytosis secondary to hemoperitoneum Patient Condition at Discharge: Fair Plan - Discharge Summary Discharge Rx Participant: No New Discharge Prescriptions: New Ibuprofen [Motrin] 600 mg PO Q8HR PRN #30 tab PRN Reason: Pain HYDROcodone/APAP 5-325MG [[place] 5-325] 1 tab PO Q6HR PRN 3 Days #10 tab PRN Reason: Pain Amoxic-Pot Clav 875-125Mg [Augmentin 875-125] 1 tab PO Q12HR #6 tablet Discharge Medication List HYDROcodone/APAP 5-325MG [[place] 5-325] 1 tab PO Q6HR PRN 3 Days #10 tab 07/11/18 [Rx] Ibuprofen [Motrin] 600 mg PO Q8HR PRN #30 tab 07/11/18 [Rx] Amoxic-Pot Clav 875-125Mg [Augmentin 875-125] 1 tab PO Q12HR #6 tablet 07/12/18 [Rx] Follow up Appointment(s)/Referral(s): Lupe Sidhu MD [STAFF PHYSICIAN] - 07/30/18 Elle Priest DO [Primary Care Provider] - 1-2 days Patient Instructions/Handouts: *Surgery [facility] - Laparoscopy Discharge Instructions, Endometriosis (DC) Activity/Diet/Wound Care/Special Instructions: May shower. No bathtub soaks. No lifting over 10 pounds one week. Regular diet as tolerated. fluids always encouraged. call your Dr with any fever, chills, increased pain not covered with pain meds, increased redness or discolored drainage from puncture sites or any concerns. no strenuous activity Last received toradol AT 1200. ([facility]) may have motrin next at 6pm May have [place] as needed at any time. no driving while taking narcotics. Discharge Disposition: HOME SELF-CARE
--- NOTE | 2018-07-16 08:20 | CDI ---
Documentation Clarification Form Date: 07/16/18 From: Moriah Nieves Phone: If questions call Mariola Cagle @ [phone], Hours-8:30 am & 5 pm M- F Admit Date: 07/11/2018 1:57:00 PM Patient Name: Mayelin Jacobs Visit Number: [id number] Discharge Date: 07/12/2018 4:40:00 PM ATTENTION: The Clinical Documentation Specialists (CDI) and [facility] Coding Staff appreciate your assistance in clarifying documentation. Please respond to the clarification below the line at the bottom and electronically sign. The CDI & [facility] Coding staff will review the response and follow-up if needed. Please note: Queries are made part of the Legal Health Record. If you have any questions, please contact the author of this message via ITS. Dr. Trina Boyce Conflicting documentation has been found in the medical record: Per 07/11 PN "The patient is a 37 year old female who presented to the ER with sepsis, WBC over 24,000 including pelvic/RLQ abdominal pain." Clinical Indicators: no fevers or chills, procalcitonin-0.22, CRP-9.8 Treatment: appy, evacuation of hemoperitoneum, ablation of endometrial deposits, antibiotics In your opinion, what is the most clinically appropriate diagnosis for this patient? Sepsis ruled in Sepsis ruled out Other explanation of clinical findings Unable to determine (no explanation for clinical findings) no sepsis MTDD
== END 2018-07-12 16:40 | disposition home or self-care (01) | DRG 746 ==
LOC: EC 16:47 → 4SSUR 21:12 → OBSVTOIN 07-11 13:57 → 6PED 07-11 23:28
PROVIDERS: ADMIT Hospitalist; ATTEND Hospitalist
PROC: 0U5F4ZZ Destruction of Cul-de-sac, Percutaneous Endoscopic Approach (ICD-10-PCS; 2018-07-11)
PROC: 0W9J4ZZ Drainage of Pelvic Cavity, Percutaneous Endoscopic Approach (ICD-10-PCS; 2018-07-11)
PROC: 8E0W4CZ Robotic Assisted Procedure of Trunk Region, Percutaneous Endoscopic Approach (ICD-10-PCS; 2018-07-11)
PROC: 0U9F4ZZ Drainage of Cul-de-sac, Percutaneous Endoscopic Approach (ICD-10-PCS; 2018-07-11)
PROC: 0DTJ4ZZ Resection of Appendix, Percutaneous Endoscopic Approach (ICD-10-PCS; principal; 2018-07-11 11:45)
DX: N80.3 Endometriosis of pelvic peritoneum (principal); K66.1 Hemoperitoneum; Q43.8 Other specified congenital malformations of intestine; D25.0 Submucous leiomyoma of uterus; N83.201 Unspecified ovarian cyst, right side; N83.202 Unspecified ovarian cyst, left side; N92.0 Excessive and frequent menstruation with regular cycle
CPT/HCPCS: 36415; 74177; 76830; 80048; 80053; 81001; 81025; 83605; 84145; 85025; 85027; 85610; 85730; 86140; 87040; 87086; 87491; 87502; 87591; 87808; 88304; 93005; 93975; 96361; 96365; 96367; 96375; 99285

== ENCOUNTER 2020-02-04 08:59 | Day surgery (SDC) | payer BC, OTHER ==
[2020-02-01 12:52] VITALS: BMI 27.6
[~2020-02-04 08:59] MED LIST: LACTATED RINGERS 1,000 ML IV SCH
[2020-02-04 09:20] VITALS: TEMP 98.6
[2020-02-04] MEDS ORDERED: PROPOFOL 10 MG/ML 20 ML VIAL IV ONE (10:39)
--- NOTE | 2020-02-04 11:13 | P.PCN ---
Date of Procedure: 02/04/20 Description of Procedure: BRIEF HISTORY: Patient is a 39-year-old female presenting for outpatient colonoscopy for evaluation of left lower quadrant pain. She reports frequent episodes of pain in the left lower quadrant of her abdomen. No signs or symptoms of GI bleeding. She has a remote history of colonoscopy. No family history of colon cancer. PROCEDURE PERFORMED: Colonoscopy with polypectomy. PREOPERATIVE DIAGNOSIS: Left lower quadrant abdominal pain, remote history of colonoscopy. ESTIMATED BLOOD LOSS: Minimal. IV sedation per Anesthesia. PROCEDURE: After informed consent was obtained, the patient, was brought into the endoscopy unit. IV sedation was administered by Anesthesia under continuous monitoring. Digital rectal examination was normal. Initially the Olympus CF-190 flexible video colonoscope was then inserted in the rectum, gradually advanced into the cecum without any difficulty. Careful examination was performed as the scope was gradually being withdrawn. Ileocecal valve and the appendiceal orifice were visualized and appeared normal. Prep was excellent. Mucosa of the cecum, ascending colon, transverse colon, descending colon, sigmoid colon, and rectum appeared normal. 3 diminutive polyps measuring 1-2 mm in size removed from the cecum, transverse colon and rectum with cold forcep polypectomy. Retroflexion was performed in the rectum and no lesions were seen. The patient tolerated the procedure well. IMPRESSION: Normal-appearing colon from rectum to cecum, with no pathology to explain patient's symptoms of left lower quadrant abdominal pain. 3 diminutive polyps removed with cold forcep polypectomy from the cecum, transverse colon and rectum. RECOMMENDATIONS: Findings of this examination were discussed with the patient.. Okay to resume diet. Okay to resume medications. On pathology from polypectomies. Recommend repeat colonoscopy in 7 years for colon polyps, pending pathology from polypectomy.
[2020-02-04 11:47] VITALS: BP 131/78; PULSE 78; RESP 16
== END 2020-02-04 12:00 | disposition home or self-care (01) ==
LOC: ORWHC2ENDO 08:59
PROVIDERS: ATTEND Internal Medicine
DX: D12.0 Benign neoplasm of cecum (principal); D12.3 Benign neoplasm of transverse colon; Z90.89 Acquired absence of other organs
CPT/HCPCS: 81025; 88305; 45380; J2704; 45385

== ENCOUNTER → 2020-03-30 | Outpatient (CLI) | payer BC ==
--- NOTE | 2020-03-30 22:08 | CT ---
EXAMINATION TYPE: CT abdomen pelvis wo con DATE OF EXAM: 03/30/2020 COMPARISON: 07/09/2018 INDICATION: c/o pelvic pain DLP: 847 mGycm, Automated exposure control for dose reduction was used. CONTRAST: 0 mL of Isovue 300. Study performed without Oral Contrast TECHNIQUE: Axial images were obtained from above the diaphragm to the pubic rami in the axial plane a t 5 mm thick sections. Reconstructed images are reviewed on the computer in the coronal plane. FINDINGS: Limited CT sections are obtained the lung bases. The lung bases are clear. CT ABDOMEN: Liver: Normal Spleen: Normal Pancreas: Normal Adrenal glands: The adrenal glands are normal. Gallbladder: Normal Kidneys: No masses are evident. No hydronephrosis is present. No cysts are present. No renal stone s are evident. Aorta: Normal Inferior vena cava: Normal. CT PELVIS: Loops of bowel within the abdomen and pelvis are normal. The study is without oral contrast limit ing bowel evaluation. Appendix: No suspicious dilated tubular structures or inflammatory changes are evident. Correlate wit h the surgical history. There may be a prior appendectomy. Some surgical suture appears to be at the cecum. Urinary bladder: Normal. Genitourinary structures: Uterus is normal. Adnexal regions appear within normal limits Osseous structures: No suspicious lytic or sclerotic lesions. IMPRESSIONS: 1. Normal noncontrast CT abdomen and pelvis.
== END | disposition home or self-care (01) ==
LOC: RADCTMAIN 18:01
PROVIDERS: ATTEND Family Medicine
DX: R10.32 Left lower quadrant pain (principal)
CPT/HCPCS: 74176